=== PATIENT | female | born 1965 ===

== ENCOUNTER 2017-07-12 10:32 | Observation (INO) | payer BC ==
--- NOTE | 2017-07-12 10:48 | ED ---
General Adult HPI - General Chief complaint: Dizziness Stated complaint: Dizzy, arm pain Time Seen by Provider: 07/12/17 10:47 Source: patient, RN notes reviewed, old records reviewed Mode of arrival: wheelchair Limitations: no limitations - History of Present Illness Initial comments: This is a 51-year-old female the ER for evaluation of dizziness weakness nausea recent fatigue. Patient's no priors or cardiac event. Patient states he has a history of vertigo this this feels different. Patient is nausea and left arm pain, left arm tingling and heaviness. [facility] has no [facility] or sick [facility] - Related Data Home Medications Medication Instructions Recorded Confirmed Dicyclomine [Bentyl] 10 mg PO BID 07/12/17 07/12/17 Docusate Sodium [Dok] 100 mg PO BID-W/MEALS 07/12/17 07/12/17 Meclizine [Antivert] 12.5 mg PO QID PRN 07/12/17 07/12/17 Allergies Allergy/AdvReac Type Severity Reaction Status Date / Time No Known Allergies Allergy Verified 07/12/17 10:58 Review of Systems ROS Statement: Those systems with pertinent positive or pertinent negative responses have been documented in the HPI. ROS Other: All systems not noted in ROS Statement are negative. Past Medical History Additional Past Medical History / Comment(s): constipation History of Any Multi-Drug Resistant Organisms: None Reported Past Surgical History: No Surgical Hx Reported Past Psychological History: No Psychological Hx Reported Smoking Status: Never smoker Past Alcohol Use History: None Reported Past Drug Use History: None Reported General Exam Limitations: no limitations General appearance: alert, in no apparent distress Head exam: Present: atraumatic, normocephalic, normal inspection Eye exam: Present: normal appearance, PERRL, EOMI. Absent: scleral icterus, conjunctival injection, periorbital swelling ENT exam: Present: normal exam, mucous membranes moist Neck exam: Present: normal inspection. Absent: tenderness, meningismus, lymphadenopathy Respiratory exam: Present: normal lung sounds bilaterally. Absent: respiratory distress, wheezes, rales, rhonchi, stridor Cardiovascular Exam: Present: regular rate, normal rhythm, normal heart sounds. Absent: systolic murmur, diastolic murmur, rubs, gallop, clicks GI/Abdominal exam: Present: soft, normal bowel sounds. Absent: distended, tenderness, guarding, rebound, rigid Extremities exam: Present: normal inspection, full ROM, normal capillary refill. Absent: tenderness, pedal edema, joint swelling, calf tenderness Back exam: Present: normal inspection Neurological exam: Present: alert, oriented X3, CN II-XII intact Psychiatric exam: Present: normal affect, normal mood Skin exam: Present: warm, dry, intact, normal color. Absent: rash Course Vital Signs 07/12/17 10:36 Temperature 97.9 F Pulse Rate 79 Respiratory 18 Rate Blood Pressure 129/73 O2 Sat by Pulse 100 Oximetry - Reevaluation(s) Reevaluation #1: 07/12/17 12:42 Patient states was 3 years old and still does not feel right EKG Findings - EKG Comments: EKG Findings:: EKG shows normal sinus rate of 74, OR 184, QRS 80, QTC 455 Medical Decision Making - Medical Decision Making 51-year-old ER for new complaints, cardiology complains going fatigue and weakness, facial be admitted for cardiology evaluation and treatment - Lab Data Result diagrams: 07/12/17 10:55 07/12/17 10:55 Lab Results 07/12/17 07/12/17 07/12/17 Range/Units 10:55 10:55 10:55 WBC 5.0 (3.8-10.6) k/uL RBC 5.08 (3.80-5.40) m/uL Hgb 14.7 (11.4-16.0) gm/dL Hct 43.7 (34.0-46.0) % MCV 86.1 (80.0-100.0) fL MCH 29.0 (25.0-35.0) pg MCHC 33.7 (31.0-37.0) g/dL RDW 13.0 (11.5-15.5) % Plt Count 197 (150-450) k/uL Neutrophils % 46 % Lymphocytes % 46 % Monocytes % 4 % Eosinophils % 1 % Basophils % 1 % Neutrophils # 2.3 (1.3-7.7) k/uL Lymphocytes # 2.3 (1.0-4.8) k/uL Monocytes # 0.2 (0-1.0) k/uL Eosinophils # 0.1 (0-0.7) k/uL Basophils # 0.0 (0-0.2) k/uL PT (9.0-12.0) sec INR (<1.2) APTT (22.0-30.0) sec Sodium 141 (137-145) mmol/L Potassium 4.3 (3.5-5.1) mmol/L Chloride 105 (98-107) mmol/L Carbon Dioxide 25 (22-30) mmol/L Anion Gap 11 mmol/L BUN 15 (7-17) mg/dL Creatinine 0.68 (0.52-1.04) mg/dL Est GFR (MDRD) Af Amer >60 (>60 ml/min/1.73 sqM) Est GFR (MDRD) Non-Af >60 (>60 ml/min/1.73 sqM) Glucose 96 (74-99) mg/dL Calcium 9.6 (8.4-10.2) mg/dL Magnesium 1.9 (1.6-2.3) mg/dL Total Bilirubin 1.3 (0.2-1.3) mg/dL AST 37 H (14-36) U/L ALT 19 (9-52) U/L Alkaline Phosphatase 90 (38-126) U/L Total Creatine Kinase 74 (30-135) U/L CK-MB (CK-2) 0.3 (0.0-2.4) ng/mL CK-MB (CK-2) Rel Index 0.4 Troponin I <0.012 (0.000-0.034) ng/mL Total Protein 7.4 (6.3-8.2) g/dL Albumin 4.8 (3.5-5.0) g/dL Lipase 78 (23-300) U/L // Range/Units 10:55 WBC (3.8-10.6) k/uL RBC (3.80-5.40) m/uL Hgb (11.4-16.0) gm/dL Hct (34.0-46.0) % MCV (80.0-100.0) fL MCH (25.0-35.0) pg MCHC (31.0-37.0) g/dL RDW (11.5-15.5) % Plt Count (150-450) k/uL Neutrophils % % Lymphocytes % % Monocytes % % Eosinophils % % Basophils % % Neutrophils # (1.3-7.7) k/uL Lymphocytes # (1.0-4.8) k/uL Monocytes # (0-1.0) k/uL Eosinophils # (0-0.7) k/uL Basophils # (0-0.2) k/uL PT 10.8 (9.0-12.0) sec INR 1.1 (<1.2) APTT 18.2 L (22.0-30.0) sec Sodium (137-145) mmol/L Potassium (3.5-5.1) mmol/L Chloride (98-107) mmol/L Carbon Dioxide (22-30) mmol/L Anion Gap mmol/L BUN (7-17) mg/dL Creatinine (0.52-1.04) mg/dL Est GFR (MDRD) Af Amer (>60 ml/min/1.73 sqM) Est GFR (MDRD) Non-Af (>60 ml/min/1.73 sqM) Glucose (74-99) mg/dL Calcium (8.4-10.2) mg/dL Magnesium (1.6-2.3) mg/dL Total Bilirubin (0.2-1.3) mg/dL AST (14-36) U/L ALT (9-52) U/L Alkaline Phosphatase (38-126) U/L Total Creatine Kinase (30-135) U/L CK-MB (CK-2) (0.0-2.4) ng/mL CK-MB (CK-2) Rel Index Troponin I (0.000-0.034) ng/mL Total Protein (6.3-8.2) g/dL Albumin (3.5-5.0) g/dL Lipase (23-300) U/L - Radiology Data Radiology results: report reviewed (Chest x-ray is negative for acute disease), image reviewed Critical Care Time Critical Care Time: Yes Total Critical Care Time: 31 Disposition Clinical Impression: Chest pain Disposition: ADMITTED IP TO THIS [facility] Condition: Good Referrals: Tamela Handy MD [Primary Care Provider] - 1-2 days
[2017-07-12 11:29] LABS: Creatine Kinase 74 U/L (30-135)
[2017-07-12 11:33] LABS: ALT 19 U/L (9-52); AST 37 U/L (14-36); Alkaline Phosphatase 90 U/L (38-126); Anion Gap 11 mmol/L; Blood Urea Nitrogen 15 mg/dL (7-17); Calcium 9.6 mg/dL (8.4-10.2); Carbon Dioxide 25 mmol/L (22-30); Chloride 105 mmol/L (98-107); Glucose 96 mg/dL (74-99); Magnesium 1.9 mg/dL (1.6-2.3); Non-African American GFR(MDRD) >60 (>60 ml/min/1.73 sqM); Sodium 141 mmol/L (137-145); Total Bilirubin 1.3 mg/dL (0.2-1.3); Total Protein 7.4 g/dL (6.3-8.2)
[2017-07-12 11:35] LABS: Potassium 4.3 mmol/L (3.5-5.1)
[2017-07-12 11:42] LABS: Basophils % (A) 1 %; CH 28.7; CHCM 33.5; Creatine Kinase MB 0.3 ng/mL (0.0-2.4); Eosinophils # (A) 0.1 k/uL (0-0.7); Eosinophils % (A) 1 %; HCT 43.7 % (34.0-46.0); HDW 2.24; HGB 14.7 gm/dL (11.4-16.0); Luc % (Auto) 2; Lymphocytes # (A) 2.3 k/uL (1.0-4.8); Lymphocytes % (A) 46 %; MCHC 33.7 g/dL (31.0-37.0); MCV 86.1 fL (80.0-100.0); Mean Platelet Volume 8.4; Monocytes # (A) 0.2 k/uL (0-1.0); Monocytes % (A) 4 %; Neutrophils # (A) 2.3 k/uL (1.3-7.7); Neutrophils % (A) 46 %; RBC 5.08 m/uL (3.80-5.40); Troponin I <0.012 ng/mL (0.000-0.034); WBC (Perox) 4.92
[2017-07-12 11:55] LABS: INR 1.1 (<1.2); Prothrombin Time 10.8 sec (9.0-12.0)
--- NOTE | 2017-07-12 12:04 | XR ---
EXAMINATION TYPE: XR chest 2V DATE OF EXAM: 07/12/2017 COMPARISON: NONE INDICATION: Weakness left arm, dizziness TECHNIQUE: Frontal and lateral views of the chest are obtained. FINDINGS: The heart size is normal. The pulmonary vasculature is normal. The lungs are clear. IMPRESSION: 1. No acute pulmonary process.
[2017-07-12 12:13] LABS: Partial Thromboplastin Time 18.2 sec (22.0-30.0)
[2017-07-12] MEDS ORDERED: ASPIRIN 81 MG PO STA (12:24)
[2017-07-12] MEDS ORDERED: NITROGLYCERIN SL TABS 0.4 MG TAB SUBLINGUAL PRN (12:24)
[2017-07-12] MEDS ORDERED: ONDANSETRON 4 MG/2 ML VIAL IVP STA (14:37)
[2017-07-12 17:24] LABS: Creatine Kinase 64 U/L (30-135)
[2017-07-12 17:38] LABS: Creatine Kinase MB 0.4 ng/mL (0.0-2.4); Troponin I <0.012 ng/mL (0.000-0.034)
[2017-07-12] MEDS ORDERED: ONDANSETRON 4 MG/2 ML VIAL IVP PRN (18:19)
--- NOTE | 2017-07-12 18:28 | P.HPIM ---
History of Present Illness H&P Date: 07/12/17 Chief Complaint: Atypical chest pain, left arm numbness, severe dizziness, intractable nause 51-year-old female one of Dr. Handy's patient with past medical history of hyperlipidemia history of migraine and history of DVT develop for the last 10 days to have episode of severe dizziness with motion and when she lays down in bed she feels everything spinning around her with extreme severe nausea and known to have IBS with constipation has been treated with Dr. Champion in the past. Patient woke up this morning had slight numbness in her left arm symptom becomes slightly red worse with slight tightness and discomfort in the chest area with her symptom along with the dizziness she presented to the emergency department at [facility] where was seen and evaluated CK with troponin came back negative with the current symptoms patient was hospitalized. Review of Systems All systems: negative Constitutional: Reports anorexia, Reports chronic headaches, Reports fever, Reports weakness, Denies as per HPI, Denies chills, Denies chronic pain, Denies daytime sleepiness, Denies fatigue, Denies lethargy, Denies malaise, Denies night sweats, Denies poor appetite, Denies sweats, Denies weight gain, Denies weight loss Eyes: bilateral as per HPI Ears: bilateral: decreased hearing Ears, nose, mouth and throat: Reports nasal congestion, Reports sinus pain, Reports sinus pressure, Denies as per HPI, Denies ant. neck pain, Denies bleeding gums, Denies dental pain, Denies dysphagia, Denies epistaxis, Denies headache, Denies hoarseness, Denies mouth pain, Denies nasal discharge, Denies neck fullness/pressure, Denies neck lump, Denies nose pain, Denies odynophagia, Denies post-nasal drip, Denies swelling in mouth, Denies swelling in throat, Denies sore throat, Denies vertigo, Denies voice changes Breasts: bilateral: as per HPI Cardiovascular: Reports palpitations, Denies as per HPI, Denies chest pain, Denies claudication, Denies decreased exercise tolerance, Denies dyspnea on exertion, Denies edema, Denies high blood pressure, Denies irregular heart beat , Denies leg edema, Denies lightheadedness, Denies orthopnea, Denies paroxysmal nocturnal dyspnea, Denies phlebitis, Denies rapid heart beat, Denies shortness of breath, Denies syncope Respiratory: Reports congestion, Denies as per HPI, Denies cough, Denies cough with sputum, Denies dyspnea, Denies excessive sputum, Denies hemoptysis, Denies home oxygen, Denies pain, Denies pain on inspiration, Denies pleurisy, Denies respiratory infections, Denies sleep apnea, Denies snoring, Denies wheezing Gastrointestinal: Reports abdominal pain, Reports bloating, Reports dyspepsia, Reports indigestion, Reports nausea, Denies as per HPI, Denies belching, Denies BRBPR, Denies change in bowel habits, Denies coffee ground emesis, Denies constipation, Denies diarrhea, Denies early satiety, Denies excessive gas, Denies heartburn, Denies hematemesis, Denies hematochezia, Denies jaundice, Denies lactose intolerance, Denies loss of appetite, Denies melena, Denies vomiting Genitourinary: Denies as per HPI, Denies abnormal vaginal bleeding, Denies decreased libido, Denies difficulty conceiving, Denies difficulty voiding, Denies dysmenorrhea, Denies dyspareunia, Denies dysuria, Denies flank pain, Denies genital sores, Denies hematuria, Denies hot flashes, Denies incomplete emptying, Denies kidney stones, Denies menorrhagia, Denies mixed incontinence, Denies nocturia, Denies pelvic pain, Denies post void dribbling, Denies , Denies prolapse symptoms, Denies stress incontinence, Denies urge incontinence , Denies urgency, Denies urinary frequency, Denies vaginal discharge, Denies vaginal dryness, Denies vaginal itching, Denies vaginal odor Musculoskeletal: Denies as per HPI, Denies arm numbness/tingling, Denies atrophy , Denies fractures, Denies frequent falls, Denies gait dysfunction, Denies hot joints, Denies leg numbness/tingling, Denies limitation of motion, Denies loss of height, Denies low back pain, Denies morning stiffness, Denies muscle cramps , Denies muscle weakness, Denies myalgias, Denies neck pain, Denies neck stiffness, Denies prior amputations, Denies redness of joints, Denies shooting arm pain, Denies shooting leg pain Integumentary: Denies as per HPI, Denies acne, Denies boils, Denies brittle nails, Denies change in hair/nails, Denies color changes, Denies darkening of skin, Denies depigmentation, Denies dryness, Denies foot/leg ulcers, Denies growths, Denies hirsutism, Denies lesions, Denies onychomycosis, Denies pruritus , Denies rash, Denies sores, Denies striae, Denies unusual bruising, Denies wounds Neurological: Reports ataxia, Reports paresthesias, Reports vertigo, Reports weakness, Denies as per HPI, Denies aphasia, Denies balance difficulties, Denies burning pain, Denies change in mentation, Denies change in smell/taste, Denies change in speech, Denies confusion, Denies convulsions, Denies double vision, Denies gait dysfunction, Denies head injury, Denies headaches, Denies hearing difficulties, Denies lack of coordination, Denies loss of vision, Denies memory loss, Denies migraines, Denies motor disturbance, Denies numbness , Denies paralysis, Denies seizures, Denies sensory deficit, Denies spasticity, Denies syncope, Denies tic, Denies tingling, Denies transient paralysis, Denies tremors, Denies visual changes Psychiatric: Denies as per HPI, Denies anhedonia, Denies anxiety, Denies anxiety attacks, Denies change in appetite, Denies change in libido, Denies change in sleep habits, Denies confusion, Denies depression, Denies difficulty concentrating, Denies disorientation, Denies hallucinations, Denies hopelessness , Denies hypersomnia, Denies insomnia, Denies irritability, Denies memory loss, Denies mood swings, Denies paranoia, Denies sadness/tearfulness, Denies sleep disturbances, Denies suicidal ideation Endocrine: Reports cold intolerance, Reports fatigue, Denies as per HPI, Denies deepening of the voice, Denies excessive sweating, Denies excessive thirst, Denies flushing, Denies heat intolerance, Denies high blood sugars, Denies increase in ring/shoe/hat size, Denies low blood sugars, Denies nocturia, Denies palpitations, Denies polydipsia, Denies polyphagia, Denies polyuria, Denies proptosis, Denies recent glucocorticoid use, Denies thyroid mass, Denies weight change Hematologic/Lymphatic: Reports easy bleeding, Denies as per HPI, Denies easy bruising, Denies lymphadenopathy, Denies lymphedema, Denies thrombophilia Allergic/Immunologic: Denies as per HPI, Denies allergic rhinitis, Denies anaphylaxis, Denies angioedema, Denies gluten intolerance, Denies persistent infections, Denies seasonal allergies, Denies urticaria, Denies wheezing Past Medical History Past Medical History: Hyperlipidemia Additional Past Medical History / Comment(s): Constipation, varicose veins L leg , DVT L leg, vertigo and sometimes vertigo with nausea/vomiting, possible arthritis in R arm, migraines years ago. History of Any Multi-Drug Resistant Organisms: None Reported Past Surgical History: Tubal Ligation Additional Past Surgical History / Comment(s): Colonoscopy Past Anesthesia/Blood Transfusion Reactions: Postoperative Nausea & Vomiting ( PONV) Past Psychological History: No Psychological Hx Reported Additional Psychological History / Comment(s): Pt resides with her spouse. She is independent. Smoking Status: Never smoker Past Alcohol Use History: None Reported Past Drug Use History: None Reported - Past Family History Mother Family Medical History: Dementia Additional Family Medical History / Comment(s): Mother is 78yrs old and starting with dementia. Father Family Medical History: Dementia Additional Family Medical History / Comment(s): Father is 92 yrs old and has dementia. Medications and Allergies Home Medications Medication Instructions Recorded Confirmed Type Dicyclomine [Bentyl] 10 mg PO BID 07/12/17 07/12/17 History Docusate Sodium [Dok] 100 mg PO BID-W/MEALS 07/12/17 07/12/17 History Meclizine [Antivert] 12.5 mg PO QID PRN 07/12/17 07/12/17 History Allergies Allergy/AdvReac Type Severity Reaction Status Date / Time No Known Allergies Allergy Verified 07/12/17 10:58 Physical Exam Vitals: Vital Signs Temp Pulse Pulse Resp BP BP Pulse Ox 07/12/17 17:15 98.4 F 82 14 129/59 97 07/12/17 17:13 97.6 F 80 18 146/66 99 07/12/17 16:16 79 18 143/69 98 07/12/17 12:57 97.5 F L 73 18 139/81 98 07/12/17 10:36 97.9 F 79 18 129/73 100 Intake and Output 07/12/17 07/12/17 07/12/17 06:59 14:59 22:59 Intake Total 480 Balance 480 Intake: Oral 480 Other: Weight 68.492 kg 66.6 kg Patient Weight 07/13/17 06:59 Weight 66.6 kg - Constitutional General appearance: no average body habitus, cooperative, no disheveled, no mild distress, no morbidly obese, no acute distress, no obese, no severe distress, no thin - EENT Eyes: no abnormal pupil, no anicteric sclerae, no disc margins sharp, no edentulous, no EOMI, no PERRLA, no fundus normal, no photophobia, no dentition normal, no poor dentition, no ptosis, no scleral icterus, no normal appearance ENT: no hard of hearing, no hearing grossly normal, no NA/AT, normal oropharynx , no other, no pharyngeal erythema, no thrush, no tonsillar exudates, no tonsillar swelling Ears: bilateral: normal - Neck Neck: no lymphadenopathy, normal ROM, no other, no rigidity, no stridor, no thyromegaly Carotids: bilateral: upstroke normal Thyroid: bilateral: normal size - Respiratory Respiratory: bilateral: CTA - Cardiovascular Rhythm: regular Heart sounds: normal: S1, S2 Abnormal Heart Sounds: systolic murmur - Gastrointestinal General gastrointestinal: no absent bowel sounds, decreased bowel sounds, distended, no hepatomegaly, no hyperactive bowel sounds, normal bowel sounds, no organomegaly, no rigid, no scaphoid, soft, no splenomegaly, no tenderness, no umbilical hernia, no ventral hernia - Integumentary Integumentary: no calor, no cellulitis, no cyanotic, no decreased turgor, no flushed, no jaundiced, normal, no normal turgor, pale, no rash, no ulcer - Neurologic Neurologic: CNII-XII intact - Musculoskeletal Musculoskeletal: gait normal, generalized weakness, strength equal bilaterally, no right sided weakness, no left sided weakness - Psychiatric Psychiatric: A&O x's 3, appropriate affect, no intact judgment & insight Results CBC & Chem 7: 07/12/17 10:55 07/12/17 10:55 Labs: Abnormal Lab Results - Last 24 Hours (Table) 07/12/17 07/12/17 Range/Units 10:55 10:55 APTT 18.2 L (22.0-30.0) sec AST 37 H (14-36) U/L Thrombosis Risk Factor Assmnt - DVT/VTE Prophylaxis DVT/VTE Prophylaxis: Mechanical Prophylaxis ordered - Choose All That Apply Any of the Below Risk Factors Present?: Yes Each Factor Represents 1 point: Age 41-60 years, Varicose veins Other Risk Factors: Yes Each Risk Factor Represents 3 Points: History of DVT/PE Other congenital or acquired thrombophilia - If yes, enter type in comment: No Thrombosis Risk Factor Assessment Total Risk Factor Score: 5 Thrombosis Risk Factor Assessment Level: High Risk Assessment and Plan Plan: 1 atypical chest pain: With her current symptoms especially with the left arm numbness patient be hospitalized consult cardiology patient will be nothing by mouth for possible stress test and echocardiogram if any abnormality in her EKG and troponin might need further invasive cardiac testing if not echo stress test will be done hopefully. 2 severe dizziness with vertigo in the current episode similar to Mnire disease. Patient will be on meclizine and combine with decongestant medicine further testing as an outpatient including ENG and possible referral to ENT might be needed to be done. 3 hyperlipidemia: Has been on diet control no medication. 4 intractable nausea: Continue patient on Zofran and meclizine. 5 IBS has been on Cosme as needed. 6 GI prophylaxis: Patient will be on Pepcid 20 mg daily. 7 DVT prophylaxis: Early mobilization and knee-high JESUS hose. CODE STATUS: Full code. Expectation from this admission: Patient in the hospital for 1-2 nights.
[2017-07-12] MEDS: DICYCLOMINE 10 MG CAP PO SCH (21:31)
[2017-07-12] MEDS: MECLIZINE 12.5 MG TAB PO PRN (21:53)
[2017-07-12 23:04] LABS: Creatine Kinase 64 U/L (30-135)
[2017-07-12 23:17] LABS: Creatine Kinase MB 0.4 ng/mL (0.0-2.4); Troponin I <0.012 ng/mL (0.000-0.034)
[2017-07-13 03:22] LABS: Cholesterol 228 mg/dL (<200); HDL Cholesterol 60 mg/dL (40-60)
[2017-07-13] MEDS ORDERED: DOCUSATE 100 MG CAP PO SCH (07:30)
[2017-07-13] MEDS ORDERED: ASPIRIN 325 MG TAB PO SCH (09:00)
[2017-07-13] MEDS ORDERED: FAMOTIDINE 20 MG TAB PO SCH (09:00)
[2017-07-13 12:07] VITALS: BP 139/69; PULSE 81; RESP 16; TEMP 98.5
[2017-07-13] MEDS: DICYCLOMINE 10 MG CAP PO SCH (12:18)
[2017-07-13] MEDS: MECLIZINE 12.5 MG TAB PO PRN (13:05)
--- NOTE | 2017-07-13 13:29 | ECHOF ---
Referral Reason:dizziness MEASUREMENTS -------- HEIGHT: 167.6 cm WEIGHT: 66.2 kg BP: 117/68 IVSd: 1.0 cm (0.6 - 1.1) LVIDd: 3.2 cm (3.9 - 5.3) LVPWd: 0.9 cm (0.6 - 1.1) IVSs: 1.3 cm LVIDs: 2.2 cm LVPWs: 1.3 cm Ao Diam: 3.2 cm (2.0 - 3.7) AV Cusp: 1.8 cm (1.5 - 2.6) LA Diam: 3.5 cm (2.7 - 3.8) MV EXCURSION: 16.312 mm (> 18.000) MV EF SLOPE: 72 mm/s (70 - 150) EPSS: 1.6 cm MV E Varun: 0.56 m/s MV DecT: 120 ms MV A Varun: 0.75 m/s MV E/A Ratio: 0.74 RAP: 5.00 mmHg RVSP: 17.74 mmHg FINDINGS -------- Sinus rhythm. This was a technically good study. Left ventricular wall thickness is normal. Overall left ventricular systolic function is normal with, an EF between 55 - 60 %. The right ventricle is normal in size. The left atrium is normal in size. The right atrium is normal in size. The aortic valve is trileaflet, and appears structurally normal. No aortic stenosis or regurgitation. There is trace mitral regurgitation. Trace tricuspid regurgitation present. The right ventricular systolic pressure, as measured by Doppler, is 17.74mmHg. Pulmonic valve appears structurally normal. The aortic root size is normal. Normal inferior vena cava with normal inspiratory collapse consistent with estimated right atrial pressure of 5 mmHg. The pericardium is normal. CONCLUSIONS -------- 1. Sinus rhythm. 2. Trace tricuspid regurgitation present. 3. The right ventricular systolic pressure, as measured by Doppler, is 17.74mmHg. 4. Pulmonic valve appears structurally normal. 5. The aortic root size is normal. 6. Normal inferior vena cava with normal inspiratory collapse consistent with estimated right atrial pressure of 5 mmHg. 7. The pericardium is normal. 8. This was a technically good study. 9. Left ventricular wall thickness is normal. 10. Overall left ventricular systolic function is normal with, an EF between 55 - 60 %. 11. The right ventricle is normal in size. 12. The left atrium is normal in size. 13. The right atrium is normal in size. 14. The aortic valve is trileaflet, and appears structurally normal. No aortic stenosis or regurgitation. 15. There is trace mitral regurgitation. BIGHT MAKER: Padmini Sheldon RDCS
--- NOTE | 2017-07-13 13:43 | P.DS ---
Providers Date of admission: 07/12/17 12:24 Expected date of discharge: 07/13/17 Attending physician: Tamela Handy Consults: 07/12/17 12:24 Consult Physician Urgent Consulting Provider: Pablito Sosa Consult Reason/Comments: stemi Do you want consulting provider notified?: Yes Primary care physician: Tamela Handy [place] [facility] Course: 51-year-old female one of Dr. Handy's patient with past medical history of hyperlipidemia history of migraine and history of DVT develop for the last 10 days to have episode of severe dizziness with motion and when she lays down in bed she feels everything spinning around her with extreme severe nausea and known to have IBS with constipation has been treated with Dr. Champion in the past. Patient woke up this morning had slight numbness in her left arm symptom becomes slightly red worse with slight tightness and discomfort in the chest area with her symptom along with the dizziness she presented to the emergency department at [facility] where was seen and evaluated CK with troponin came back negative with the current symptoms patient was hospitalized. She was seen by industrial rehabilitation consultant and underwent stress testing which was negative. Patient will be discharged home today in stable condition. Patient will be continued on meclizine 12.5 mg 3 times daily scheduled for 2 weeks and then as needed. Also aspirin and Pepcid have been added. Discharge diagnoses: 1 atypical chest pain possibly secondary to GERD. 2 severe dizziness with vertigo in the current episode similar to Mnire disease. 3 hyperlipidemia 4 intractable nausea secondary to vertigo 5 IBS Discharge plan: Home Impression and plan of care have been directed as dictated by the signing physician. Samantha Mosley nurse practitioner acting as scribe for signing physician. Patient Condition at Discharge: Good Plan - Discharge Summary New Discharge Prescriptions: New Famotidine [Pepcid] 20 mg PO DAILY tab Continue Dicyclomine [Bentyl] 10 mg PO BID Docusate Sodium [Dok] 100 mg PO BID-W/MEALS Changed Meclizine [Antivert] 12.5 mg PO TID #0 Discharge Medication List Dicyclomine [Bentyl] 10 mg PO BID 07/12/17 [History] Docusate Sodium [Dok] 100 mg PO BID-W/MEALS 07/12/17 [History] Famotidine [Pepcid] 20 mg PO DAILY tab 07/13/17 [Rx] Meclizine [Antivert] 12.5 mg PO TID #0 07/13/17 [Rx] Follow up Appointment(s)/Referral(s): Tamela Handy MD [Primary Care Provider] - 1 Week Discharge Disposition: HOME SELF-CARE
--- NOTE | 2017-07-13 15:05 | P.CRDCN ---
History of Present Illness Consult date: 07/13/17 History of present illness: This is a 51-year-old female. Past medical history significant for vertigo and chronic constipation. Patient presents with complaints of dizziness. She states she has suffered with vertigo in the past. She became acutely dizzy yesterday morning with associated fatigue, nausea and left arm pain described as heaviness/tingling. Patient states it is hard to describe but it was definitely not pain. She almost felt as though the arm was twitchy. She states this dizziness comes on when she lays down in bed and feels everything spinning around her. EKG done shows normal sinus mechanism with no T-wave abnormality. CPK and troponin are normal. Chest x-ray showed no acute cardiopulmonary process. Review of Systems REVIEW OF SYSTEMS: Patient denies any chest discomfort. No shortness of breath. No diaphoresis. Denies headache, blurred vision, double vision. No dyspnea on exertion. Patient denies any stomach discomfort. No nausea, vomiting. No hematochezia. No hematemesis. Denies any black stools or blood in his stools. No syncope. No palpitations. No cough. No recent fever or chills. No muscle weakness or numbness. Continues to c/o dizziness with fast or extreme movement. Past Medical History Past Medical History: Hyperlipidemia Additional Past Medical History / Comment(s): Constipation, varicose veins L leg , DVT L leg, vertigo and sometimes vertigo with nausea/vomiting, possible arthritis in R arm, migraines years ago. History of Any Multi-Drug Resistant Organisms: None Reported Past Surgical History: Tubal Ligation Additional Past Surgical History / Comment(s): Colonoscopy Past Anesthesia/Blood Transfusion Reactions: Postoperative Nausea & Vomiting ( PONV) Past Psychological History: No Psychological Hx Reported Additional Psychological History / Comment(s): Pt resides with her spouse. She is independent. Smoking Status: Never smoker Past Alcohol Use History: None Reported Past Drug Use History: None Reported - Past Family History Mother Family Medical History: Dementia Additional Family Medical History / Comment(s): Mother is 78yrs old and starting with dementia. Father Family Medical History: Dementia Additional Family Medical History / Comment(s): Father is 92 yrs old and has dementia. Medications and Allergies Home Medications Medication Instructions Recorded Confirmed Type Dicyclomine [Bentyl] 10 mg PO BID 07/12/17 07/12/17 History Docusate Sodium [Dok] 100 mg PO BID-W/MEALS 07/12/17 07/12/17 History Allergies Allergy/AdvReac Type Severity Reaction Status Date / Time No Known Allergies Allergy Verified 07/12/17 10:58 Physical Exam Vitals: Vital Signs Temp Pulse Pulse Resp BP BP Pulse Ox 07/13/17 07:46 98.1 F 70 18 124/53 99 07/13/17 04:00 18 07/13/17 03:45 97.9 F 68 16 123/63 99 07/13/17 00:00 16 07/12/17 23:30 97.9 F 73 16 120/63 99 07/12/17 20:00 16 07/12/17 19:24 98.7 F 77 16 143/57 98 07/12/17 18:24 82 16 07/12/17 17:15 98.4 F 82 14 129/59 97 07/12/17 17:13 97.6 F 80 18 146/66 99 07/12/17 16:16 79 18 143/69 98 07/12/17 12:57 97.5 F L 73 18 139/81 98 07/12/17 10:36 97.9 F 79 18 129/73 100 Intake and Output 07/12/17 07/13/17 07/13/17 22:59 06:59 14:59 Intake Total 480 Balance 480 Intake: Oral 480 Other: Voiding Method Toilet Toilet # Voids 2 Weight 66.6 kg GENERAL: This is a 51-year-old female in no apparent distress at the time of my examination. HEENT: Head is atraumatic, normocephalic. Pupils are equal, round. Sclerae anicteric. Conjunctivae are clear. Mucous membranes of the mouth are moist. Neck is supple. There is no jugular venous distention. No carotid bruit is heard. LUNGS: Clear to auscultation no wheezes, rales or rhonchi. No chest wall tenderness is noted on palpation or with deep breathing. HEART: Regular rate and rhythm without murmurs, rubs or gallops. S1 and S2 heard. ABDOMEN: Soft, nontender. Bowel sounds are heard. No organomegaly noted. EXTREMITIES: 2+ peripheral pulses with no evidence of peripheral edema and no calf tenderness noted. NEUROLOGIC: Patient is awake, alert and oriented x3. Results 07/12/17 10:55 07/12/17 10:55 Cardiac Enzymes 07/12/17 07/12/17 07/12/17 Range/Units 10:55 10:55 16:54 AST 37 H (14-36) U/L CK-MB (CK-2) 0.3 0.4 (0.0-2.4) ng/mL Troponin I <0.012 <0.012 (0.000-0.034) ng/mL 07/12/17 Range/Units 22:35 AST (14-36) U/L CK-MB (CK-2) 0.4 (0.0-2.4) ng/mL Troponin I <0.012 (0.000-0.034) ng/mL Coagulation 07/12/17 Range/Units 10:55 PT 10.8 (9.0-12.0) sec APTT 18.2 L (22.0-30.0) sec Lipids 07/12/17 Range/Units 10:55 Triglycerides 96 (<150) mg/dL Cholesterol 228 H (<200) mg/dL HDL Cholesterol 60 (40-60) mg/dL CBC 07/12/17 Range/Units 10:55 WBC 5.0 (3.8-10.6) k/uL RBC 5.08 (3.80-5.40) m/uL Hgb 14.7 (11.4-16.0) gm/dL Hct 43.7 (34.0-46.0) % Plt Count 197 (150-450) k/uL Comprehensive Metabolic Panel 07/12/17 Range/Units 10:55 Sodium 141 (137-145) mmol/L Potassium 4.3 (3.5-5.1) mmol/L Chloride 105 (98-107) mmol/L Carbon Dioxide 25 (22-30) mmol/L BUN 15 (7-17) mg/dL Creatinine 0.68 (0.52-1.04) mg/dL Glucose 96 (74-99) mg/dL Calcium 9.6 (8.4-10.2) mg/dL AST 37 H (14-36) U/L ALT 19 (9-52) U/L Alkaline Phosphatase 90 (38-126) U/L Total Protein 7.4 (6.3-8.2) g/dL Albumin 4.8 (3.5-5.0) g/dL Current Medications Generic Name Dose Route Start Last Admin Trade Name Freq PRN Reason Stop Dose Admin Aspirin 325 mg 07/13/17 09:00 Aspirin PO DAILY LUIS Dicyclomine HCl 10 mg 07/12/17 21:00 07/12/17 21:31 Bentyl PO 10 mg BID LUIS Administration Docusate Sodium 100 mg 07/13/17 07:30 Colace PO BID-W/MEALS LUIS Famotidine 20 mg 07/13/17 09:00 Pepcid PO DAILY LUIS Meclizine HCl 12.5 mg 07/12/17 18:19 07/12/17 21:53 Antivert PO 12.5 mg QID PRN Administration DIZZINESS Nitroglycerin 0.4 mg 07/12/17 12:24 Nitrostat SUBLINGUAL Q5M PRN Chest Pain Ondansetron HCl 4 mg 07/12/17 18:19 07/12/17 18:56 Zofran IVP 4 mg Q6HR PRN Administration Nausea And Vomiting Intake and Output 07/12/17 07/13/17 07/13/17 22:59 06:59 14:59 Intake Total 480 Balance 480 Intake: Oral 480 Other: Voiding Method Toilet Toilet # Voids 2 Weight 66.6 kg 07/12/17 10:55 07/12/17 10:55 EKG Interpretations (text) EKG indicates a normal sinus mechanism with no ST abnormalities. Assessment and Plan Plan: ASSESSMENT 1. Dizziness secondary to vertigo 2. Left arm heaviness, atypical for acute coronary syndrome PLAN We will order an echocardiogram and a stress echo to rule out an acute coronary event. This testing is normal the patient is stable for discharge home from a cardiac standpoint. I would recommend follow-up with an ENT specialist to evaluate the vertigo. She can follow-up with Dr. Harp in the office as needed. Nurse Practitioner note has been reviewed, I agree with a documented findings and plan of care. Patient was seen and examined.
--- NOTE | 2017-07-14 06:05 | ECHOS ---
DATE OF SERVICE: 07/13/2017 TYPE OF REPORT: Stress Echocardiogram. INDICATION: Dizziness. BASELINE HEART RATE: 76 BASELINE BLOOD PRESSURE: 136/66 MAXIMUM HEART RATE: 169 MAXIMUM BLOOD PRESSURE: 140/68 85% MPHR: 142 100% MPHR: 167 METS: 8.5 MAX STAGE REACHED: III TOTAL EXERCISE TIME: 7 minutes. The test was being done to evaluate chest pains and left arm pain. Baseline EKG show sinus rhythm with normal ND interval and QRS duration. Blood pressure at rest is 136/66 with a pulse rate of 76. Patient walked on Jerry protocol for 7 minutes achieving a maximum heart rate of 169 with blood pressure of 140/68. EKGs taken during and after the exercise did not reveal any changes to suggest ischemia. Patient did not experience any chest pain. ECHO DATA: Baseline echo images show normal wall motion and thickening. Exercise echo images showed augmentation of the wall motion and thickening in all the segments. FINAL IMPRESSION: 1. Negative stress test. 2. Negative stress echo. WINDY
== END 2017-07-13 15:05 | disposition home or self-care (01) ==
LOC: EC 10:32 → 3OBS 12:24
PROVIDERS: ADMIT Family Medicine; ATTEND Family Medicine
DX: R07.89 Other chest pain (principal); R42 Dizziness and giddiness; M79.602 Pain in left arm; R53.1 Weakness; R20.2 Paresthesia of skin; R20.0 Anesthesia of skin; R11.0 Nausea; E78.5 Hyperlipidemia, unspecified; K58.1 Irritable bowel syndrome with constipation; Z79.899 Other long term (current) drug therapy; Z86.718 Personal history of other venous thrombosis and embolism
CPT/HCPCS: 99291; 96374; 36415; 93005; 93017; 93306; 93350; 80061; 80053; 82550; 82553; 83690; 83735; 84484; 85025; 85610; 85730; 71020; G0378 ×2; J2405

== ENCOUNTER → 2017-08-30 | Outpatient (CLI) | payer BC ==
--- NOTE | 2017-08-30 10:02 | BD ---
EXAMINATION TYPE: MG DEXA axial skeleton. DATE OF EXAM: 08/30/2017 COMPARISON: NONE CLINICAL HISTORY: 51-year-old female postmenopausal symptoms and screening Height: 66 IN Weight: 156 LBS FRAX RISK QUESTIONS: Alcohol (3 or more units per day): NO Family History (Parent hip fracture): YES MOTHER Glucocorticoids (More than 3mos): NO (Ex: prednisone, prednisolone, methylprednisolone, dexamethasone, and hydrocortisone). History of Fracture in Adulthood: NO Secondary Osteoporosis: 1. Type 1 Diabetes: NO 2. Hyperthyroidism: NO 3. Menopause before 45: NO 4. Malnutrition: NO 5. Chronic liver disease: NO Rheumatoid Arthritis: NO Current Tobacco Use: NO RISK FACTORS HISTORY OF: Family History of Osteoporosis: YES MOTHER, SISTERS X 2 Active: YES Diet low in dairy products/other sources of calcium: YES Postmenopausal woman: AGE 46 MEDICATIONS: Additional Medications: BABY ASPIRIN, STOOL SOFTENERS, DIZZINESS MEDS EXAM MEASUREMENTS: Bone mineral densitometry was performed using the [employer] System. Bone mineral density as measured about the Lumbar spine is: ----- L1-L4(G/cm2): 1.065 T Score Values are as follows: ----- L2: -1.4 ----- L3: -0.4 ----- L4: -1.1 ----- L1-L4: -1.0 Bone mineral density BASELINE Bone mineral density about the R hip (g/cm2): 0.881 Bone mineral density about the L hip (g/cm2): 0.888 T Score values are as follows: -----R Neck: -1.1 -----L Neck: -1.1 -----R Total: -0.4 -----L Total: -0.3 Bone mineral density BASELINE IMPRESSION: Osteopenia (T Score between -2.5 and -1 as noted by T score values in the lumbar spine and both hips) . There is slightly increased risk of fracture and the patient may be considered for treatment. Re-Scre en 2-5 years. NOTE: T-SCORE=SD OF THE YOUNG ADULT MEAN.
--- NOTE | 2017-08-31 09:25 | MM ---
Reason for exam: screening (asymptomatic). Last mammogram was performed 1 year and 1 month ago. History: Patient is postmenopausal. Family history of breast cancer in sister at age 43. Benign cyst aspiration of the left breast, 2012. Physical Findings: A clinical breast exam by your physician is recommended on an annual basis and results should be correlated with mammographic findings. MG Screening Mammo w CAD Bilateral CC and MLO view(s) were taken. Prior study comparison: July 28, 2016, bilateral MG 3d screening mammo w/cad. June 28, 2015, bilateral MG screening mammo w CAD. The breast tissue is heterogeneously dense. This may lower the sensitivity of mammography. There is no discrete abnormality. Focal asymmetry in the rigt breast anteriorl MLO view only, 2cm from nipple. This finding is changed and more defined when compared with previous exams. ASSESSMENT: Incomplete: need additional imaging evaluation, BI-RAD 0 RECOMMENDATION: Special view mammogram of the right breast. If lesion persists on supplemental views, image directed ultrasound is recommended. [facility] will attempt to contact patient to return for supplemental views and ultrasound if indicated.
== END | disposition home or self-care (01) ==
LOC: RADMAMWWP 08:17
PROVIDERS: ATTEND Family Medicine
DX: Z12.31 Encounter for screening mammogram for malignant neoplasm of breast (principal); N95.1 Menopausal and female climacteric states; M85.851 Other specified disorders of bone density and structure, right thigh; M85.852 Other specified disorders of bone density and structure, left thigh; M85.88 Other specified disorders of bone density and structure, other site
CPT/HCPCS: 77080; G0202

== ENCOUNTER → 2017-09-01 | Outpatient (CLI) | payer BC ==
--- NOTE | 2017-09-01 10:10 | MM ---
Reason for exam: additional evaluation requested from abnormal screening. Last mammogram was performed less than 1 month ago. History: Patient is postmenopausal. Family history of breast cancer in sister at age 43. Benign cyst aspiration of the left breast, 2012. Physical Findings: Nurse did not find any significant physical abnormalities on exam. MG Work Up Mamm w CAD RT LM and MLO view(s) were taken of the right breast. Prior study comparison: August 30, 2017, bilateral MG screening mammo w CAD. July 28, 2016, bilateral MG 3d screening mammo w/cad. June 28, 2015, bilateral MG screening mammo w CAD. June 27, 2014, bilateral MG screening mammo w CAD. The breast tissue is heterogeneously dense. This may lower the sensitivity of mammography. The asymmetric density disperses on spot MLO and has an appearance unchanged from 2013. ASSESSMENT: Negative, BI-RAD 1 RECOMMENDATION: Return to routine screening mammogram schedule for both breasts.
== END | disposition home or self-care (01) ==
LOC: LABWHC1 06:55
PROVIDERS: ATTEND Family Medicine
DX: R92.8 Other abnormal and inconclusive findings on diagnostic imaging of breast (principal)

== ENCOUNTER → 2018-01-05 | Outpatient (CLI) | payer BC ==
--- NOTE | 2018-01-05 11:32 | USB ---
Reason for exam: clinical finding. History: Patient is postmenopausal. Family history of breast cancer in sister at age 43. Benign cyst aspiration of the left breast, 2012. Physical Findings: Nurse Summary: Patient complains of sharp shooting pain left nipple to left upper outer quadrant, 1cm round movable tender palpable left breast 2 o'clock at nipple (nurse mj). US Breast LT Left breast ultrasound demonstrates a 0.7 x 0.6 x 0.6cm round, cystic lesion at 2 o'clock. These results were verbally communicated with the patient and result sheet given to the patient on 01/05/18. ASSESSMENT: Incomplete: need additional imaging evaluation, BI-RAD 0 RECOMMENDATION: Special view mammogram of the left breast.
--- NOTE | 2018-01-05 11:34 | MM ---
Reason for exam: additional evaluation requested from abnormal screening. Last mammogram was performed 4 months ago. History: Patient is postmenopausal. Family history of breast cancer in sister at age 43. Benign cyst aspiration of the left breast, 2012. MG 3D Diag Mammo W/Cad LT CC and MLO view(s) were taken of the left breast. Prior study comparison: September 01, 2017, right breast MG work up mamm w CAD RT. August 30, 2017, bilateral MG screening mammo w CAD. The breast tissue is heterogeneously dense. This may lower the sensitivity of mammography. These results were verbally communicated with the patient and result sheet given to the patient on 01/05/18. ASSESSMENT: Benign, BI-RAD 2 RECOMMENDATION: Return to routine screening mammogram schedule for both breasts. Back on schedule for August 2018.
== END | disposition home or self-care (01) ==
LOC: RADUSWWP 10:09
PROVIDERS: ATTEND Internal Medicine Geriatric Medicine
DX: S20.112 Abrasion of breast, left breast (principal)
CPT/HCPCS: 77065; 76641; G0279

== ENCOUNTER → 2018-06-06 | Outpatient (CLI) | payer BC ==
--- NOTE | 2018-06-06 16:00 | XR ---
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 Lungs an d pleural spaces are clear. IMPRESSION: No acute cardiopulmonary process.
== END | disposition home or self-care (01) ==
LOC: RADXRMAIN 15:04
PROVIDERS: ATTEND Internal Medicine Geriatric Medicine
DX: Z02.1 Encounter for pre-employment examination (principal)
CPT/HCPCS: 71046

== ENCOUNTER → 2019-02-01 | Outpatient (CLI) | payer BC ==
--- NOTE | 2019-02-03 08:29 | MM ---
Reason for exam: screening (asymptomatic). Last mammogram was performed 1 year and 1 month ago. History: Patient is postmenopausal. Family history of breast cancer in sister at age 43. Benign cyst aspiration of the left breast, 2012. Physical Findings: A clinical breast exam by your physician is recommended on an annual basis and results should be correlated with mammographic findings. MG 3D Screening Mammo W/Cad Bilateral CC and MLO view(s) were taken. Prior study comparison: January 05, 2018, left breast MG 3d diag mammo w/cad LT. September 01, 2017, right breast MG work up mamm w CAD RT. The breast tissue is heterogeneously dense. This may lower the sensitivity of mammography. Asymmetric densities right breast do not persist on 3D images. No significant changes when compared with prior studies. ASSESSMENT: Negative, BI-RAD 1 RECOMMENDATION: Routine screening mammogram of both breasts in 1 year.
== END | disposition home or self-care (01) ==
LOC: RADMAMWWP 14:23
PROVIDERS: ATTEND Obstetrics & Gynecology
DX: Z12.31 Encounter for screening mammogram for malignant neoplasm of breast (principal); Z80.3 Family history of malignant neoplasm of breast
CPT/HCPCS: 77063; 77067

== ENCOUNTER 2019-03-03 08:47 | Day surgery (SDC) | payer BC ==
[2019-03-01 12:02] VITALS: BMI 25.4
[~2019-03-03 08:47] MED LIST: LACTATED RINGERS 1,000 ML IV SCH
[2019-03-03 09:07] VITALS: RESP 16; TEMP 98.3
[2019-03-03] MEDS ORDERED: LIDOCAINE 1% 20 ML VIAL (10MG/ML) FOR IV START INTRADERMA ONE (09:15)
[2019-03-03] MEDS ORDERED: LIDOCAINE 1% INJ 10MG/ML (20 ML MDV) ONE (10:03)
[2019-03-03] MEDS ORDERED: PROPOFOL 10 MG/ML 20 ML VIAL IV ONE (10:03)
--- NOTE | 2019-03-03 10:25 | P.PCN ---
Date of Procedure: 03/03/19 Procedure(s) Performed: Brief history: Patient is a pleasant 53-year-old white female, scheduled for an elective upper endoscopy as well as colonoscopy as a part of evaluation of GERD symptoms and screening for colorectal neoplasia. Procedure performed: Esophagogastroduodenoscopy with biopsy Colonoscopy Preoperative diagnosis: GERD Screening for colon cancer Anesthesia: MAC Procedure: After informed consent was obtained from the patient was brought into the endoscopy unit and IV sedation was administered by anesthesia under continuous monitoring. Initially upper endoscopy was done. The Olympus GF 160 video endoscope was inserted inserted into the mouth and esophagus intubated without any difficulty and was gradually advanced into the stomach and duodenum and carefully examined. The bulb and second part of the duodenum appeared normal. The scope was then withdrawn into the stomach adequately insufflated with air and upon careful examination the antrum had multiple scattered erosions consistent with gastritis and biopsies were done from this area. The body, cardia and fundus appeared normal. The scope was then withdrawn into the esophagus. The GE junction was located at 38 cm to the incisors. It appeared regular with no erosions or ulcerations. however there was circumferential erythema consistent with LA grade A reflux esophagitis. Rest of the esophagus appeared normal. Patient tolerated the procedure well. At this time the patient continued to remain sedation. Initial digital rectal examination was normal. Olympus CF 160 video colonoscope was then inserted into the rectum and gradually advanced to the cecum without any difficulty. Careful examination was performed as the scope was gradually being withdrawn. The prep was excellent. The cecum, ascending colon, transverse colon, descending colon, sigmoid colon and rectum appeared normal. Retroflexion was performed in the rectum and no lesions were noted. Patient tolerated the procedure well. Impression: 1. Upper endoscopy revealed LA grade a reflux esophagitis and antral erosive gastritis 2. Colonoscopy was essentially within normal limits with no evidence of colitis or colorectal neoplasia Recommendations: Findings of this examination were discussed with the patient as well as her family. She will follow with the biopsy results. Was given a prescription for Zantac 150 milligrams twice daily and was briefly educated about tight modification antireflux measures. She was advised to have a repeat screening colonoscopy in 10 years.
[2019-03-03 10:45] VITALS: BP 138/82; PULSE 91
== END 2019-03-03 11:23 | disposition home or self-care (01) ==
LOC: ORWHC2ENDO 08:47
PROVIDERS: ATTEND Internal Medicine Gastroenterology
DX: K21.0 Gastro-esophageal reflux disease with esophagitis (principal); R19.4 Change in bowel habit; K29.50 Unspecified chronic gastritis without bleeding; K29.60 Other gastritis without bleeding; Z86.718 Personal history of other venous thrombosis and embolism; Z79.82 Long term (current) use of aspirin
CPT/HCPCS: 88305; 45378; 43239; J2001; J2704

== ENCOUNTER → 2019-07-04 | Outpatient (CLI) | payer BC ==
--- NOTE | 2019-07-04 15:01 | US ---
EXAMINATION TYPE: US transvaginal DATE OF EXAM: 07/04/2019 COMPARISON: NONE CLINICAL HISTORY: R10.2 Pelvic Pain. TECHNIQUE: Transvaginal (TV). Date of LMP: 9 years prior EXAM MEASUREMENTS: Uterus: 6.2 x 3.2 x 4.4 cm Endometrial Stripe: not visualized Right Ovary: obscured by overlying bowel/atrophy Left Ovary: obscured by overlying bowel/atrophy 1. Uterus: Anteverted, hypoechoic area fundally measuring 1.0 x 0.8 x 1.1 cm 2. Endometrium: unable to visualize due to shadowing 3. Right Ovary: Obscured by overlying bowel gas 4. Left Ovary: Obscured by overlying bowel gas 5. Bilateral Adnexa: left adnexa shows prominent vasculature 6. Posterior cul-de-sac: wnl IMPRESSION: 1. Prominent vasculature within the left adnexa can relate to pelvic congestion syndrome. 2. Ovaries are obscured by bowel gas. 3. 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
== END | disposition home or self-care (01) ==
LOC: RADUSWWP 13:55
PROVIDERS: ATTEND Internal Medicine Geriatric Medicine
DX: R10.2 Pelvic and perineal pain (principal)
CPT/HCPCS: 76830

== ENCOUNTER → 2020-01-08 | Outpatient (CLI) | payer BC ==
--- NOTE | 2020-01-08 16:25 | XR ---
EXAMINATION TYPE: XR chest 2V DATE OF EXAM: 01/08/2020 COMPARISON: 06/06/2019 HISTORY: Shortness of breath TECHNIQUE: Frontal and lateral views of the chest are obtained. FINDINGS: Scattered senescent parenchymal changes noted. Hyperinflation compatible with COPD. No evidence for infiltrate. No evidence for atelectasis. Heart size is stable. Mediastinal structures are stable and grossly unremarkable. No evidence for hilar prominence. Degenerative changes dorsal spine. IMPRESSION: 1. No evidence for acute pulmonary disease.
== END | disposition home or self-care (01) ==
LOC: RADXRMAIN 13:50
PROVIDERS: ATTEND Internal Medicine
DX: R09.1 Pleurisy (principal)
CPT/HCPCS: 71046